=== PATIENT | male | born 1960 | race Two or more races ===

== ENCOUNTER 2017-04-29 05:48 | Day surgery (SDC) | payer OTHER ==
[~2017-04-29 05:48] MED LIST: AMBIEN10 MG PO; BAYER ASPIRIN325 MG PO; CLORAZEPATE D3.75 MG PO; COZAAR25 MG PO; CRESTOR20 MG PO; FENOFIBRATE48 MG PO; OMEGA 3 500 SO1 EACH PO; PROZAC10 M1 PO; TOPROL XL50 M1 PO
[2017-04-29] MEDS ORDERED: PERCOCET 5-3251 EACH PO (11:45)
[2017-04-29] MEDS ORDERED: NABUMETONE500 MG PO (11:45)
== END 2017-04-29 18:30 | disposition home or self-care (01) ==
LOC: CIR.AMB 05:48
DX: M23.322 Other meniscus derangements, posterior horn of medial meniscus, left knee (principal); M94.262 Chondromalacia, left knee; M65.862 Other synovitis and tenosynovitis, left lower leg; M17.12 Unilateral primary osteoarthritis, left knee

== ENCOUNTER → 2017-07-23 | Outpatient (CLI) | payer OTHER ==
[~2017-07-23] MED LIST changes: +NABUMETONE500 MG PO; +PERCOCET 5-3251 EACH PO
== END | disposition home or self-care (01) ==
LOC: RAD 13:27
DX: M25.561 Pain in right knee (principal); M25.562 Pain in left knee

== ENCOUNTER 2018-08-18 10:15 | Inpatient (IN) | payer OTHER ==
[~2018-08-18] VITALS: Ht 175.3 cm; Wt 92.5 kg
[2018-08-18] MEDS ORDERED: ATIVAN0.5 MG (12:16)
[2018-08-27] MEDS ORDERED: NORFLEX100MG PO (13:54)
[2018-08-27] MEDS ORDERED: OXYC1TAB9 PO (13:55)
[2018-08-27] MEDS ORDERED: GABAPENTIN100 MG PO (13:56)
[2018-08-27] MEDS ORDERED: XARELTO10 MG PO (13:57)
== END 2018-08-27 17:40 | disposition home or self-care (01) | DRG 470 ==
LOC: O/R 08-25 05:30 → SURH 08-25 05:30
PROVIDERS: ADMIT Orthopaedic Surgery
PROC: 0SRD0J9 Replacement of Left Knee Joint with Synthetic Substitute, Cemented, Open Approach (ICD-10-PCS; principal; 2018-08-25 07:00)
DX: M17.12 Unilateral primary osteoarthritis, left knee (principal); F41.8 Other specified anxiety disorders; E78.00 Pure hypercholesterolemia, unspecified; F32.9 Major depressive disorder, single episode, unspecified; I11.9 Hypertensive heart disease without heart failure; I48.0 Paroxysmal atrial fibrillation

== ENCOUNTER 2018-12-28 09:23 | Outpatient (CLI) | payer OTHER ==
[~2018-12-28 09:23] MED LIST changes: +ATIVAN0.5 MG; +GABAPENTIN100 MG PO; +NORFLEX100MG PO; +OXYC1TAB9 PO; +XARELTO10 MG PO
== END 2018-12-28 09:42 | disposition home or self-care (01) ==
LOC: RAD 09:23
DX: M17.11 Unilateral primary osteoarthritis, right knee (principal); M17.12 Unilateral primary osteoarthritis, left knee